=== PATIENT | female | born 1985 | race American Indian/Alaskan Native ===

== ENCOUNTER 2018-06-05 08:56 | Day surgery (SDC) | payer MEDICAID ==
[2018-06-05] MEDS ORDERED: Midazolam 2 MG/2 ML VIAL ONE (10:08)
[2018-06-05] MEDS ORDERED: Propofol 10 mg/ml Inj (20 ML) ONE (10:09)
[2018-06-05] MEDS ORDERED: Doxycycline 100 mg Inj ONE (10:20)
[2018-06-05] MEDS ORDERED: ceFAZolin 1 gm in NS 1 GM/100 ML BAG IVPB ONE (10:44)
[2018-06-05] MEDS ORDERED: HYDROmorphone 0.5 mg/0.5 ml ISec IVP PRN (11:02)
--- NOTE | 2018-06-05 11:14 | CP.PCM.PN ---
Subjective - Date & Time of Evaluation Date of Evaluation: 06/05/18 Time of Evaluation: 11:05 - Subjective Subjective: Called by Nurse in PACU pt with vaginal bleeding with 1 large blood clot pt reprot crmaping pain, denies any dizzyness, cp, sob, Objective - Vital Signs/Intake and Output Vital Signs (last 24 hours): Temp Pulse Resp BP Pulse Ox 98 F 65 18 146/95 H 99 06/05/18 09:08 06/05/18 09:08 06/05/18 09:08 06/05/18 09:08 06/05/18 09:08 Intake and Output: 06/05/18 06/05/18 06:59 18:59 Intake Total 0 Balance 0 - Medications Medications: Current Medications Hydromorphone HCl (Dilaudid) 0.5 mg IVP Q5M PRN PRN Reason: Pain, severe (8-10) Stop: 06/05/18 13:02 - Constitutional Appears: Well, Non-toxic - Head Exam Head Exam: ATRAUMATIC - Neck Exam Neck Exam: Normal Inspection - Cardiovascular Exam Cardiovascular Exam: REGULAR RHYTHM, +S1, +S2 - GI/Abdominal Exam GI & Abdominal Exam: Soft, Tenderness, Normal Bowel Sounds Additional comments: appropiraltye ttp over uterus, non guarding, no reboudn tendner, no rigidty 300cc blood clots evacuted bimanual masages good hemostias - Exam Additional comments: bimaunal as above Assessment and Plan - Assessment and Plan (Free Text) Assessment: s/p suction dxc with bleeding, currently stable Plan: 1. pitocin iv 2. methergin IM x 1 3. cyototec per recutm 4. CBC 5. ivh 6. VS pre procotoc 7. pain managmnet
[2018-06-05] MEDS ORDERED: Oxytocin 10 Units/ml Inj ONE (11:16)
[2018-06-05 12:42] LABS: BASO % 0.4 % (0.0-2.0); EOS # 0.1 K/uL (0.0-0.7); EOS % 1.5 % (0.0-4.0); HEMOGLOBIN 11.4 g/dL (11.0-16.0); LYMPH # 0.5 K/uL (1.0-4.3); LYMPH % 9.1 % (20.0-40.0); MEAN CORPUSCULAR HEMOGLOBIN 31.7 pg (27.0-31.0); MEAN CORPUSCULAR HGB CONC 33.5 g/dL (33.0-37.0); MEAN PLATELET VOLUME 8.6 fL (7.2-11.7); MONO # 0.5 K/uL (0.0-0.8); MONO % 8.7 % (0.0-10.0); NEUT # 4.6 K/uL (1.8-7.0); NEUT % 80.3 % (50.0-75.0); PLATELET COUNT 185 K/uL (130-400); RBC 3.59 Mil/uL (3.80-5.20); RED CELL DISTRIBUTION WIDTH 12.9 % (11.5-14.5)
[2018-06-05 12:45] LABS: MEAN CELL VOLUME 94.6 fL (81.0-99.0); WHITE BLOOD COUNT 5.7 K/uL (4.8-10.8)
[2018-06-05] MEDS ORDERED: Lactated Ringer's 1,000 ML IV ONE (13:20)
[2018-06-05] MEDS ORDERED: Lactated Ringer's 1,000 ML IV SCH (13:30)
[2018-06-05 14:14] LABS: EOSINOPHIL 1 % (0-4); LYMPHOCYTE 6 % (20-40); MONOCYTE 4 % (0-10); NEUTROPHIL 89 % (50-75); PLATELET ESTIMATE NORMAL (NORMAL); TOTAL CELLS COUNTED 100
--- NOTE | 2018-06-05 14:20 | OP ---
PROCEDURE DATE: 06/05/2018 PREOPERATIVE DIAGNOSIS: Missed 9 weeks. POSTOPERATIVE DIAGNOSIS: Missed 9 weeks. PROCEDURE: Suction, dilation and curettage. SURGEON: Kristel Piedra MD. STITCH CLEANER: None. TYPE OF ANESTHESIA: General LMA. OPERATIVE FINDINGS: Anteverted, 8 to 10-week size uterus, moderate products of conception, 8 mm curved suction curette used, good hemostasis, and no complications. ESTIMATED BLOOD LOSS: 10 mL. BLOOD PRODUCTS: None. COMPLICATIONS: None. SPECIMEN: Products of conception. DESCRIPTION OF PROCEDURE: The patient was taken to the operating room where she was given general anesthesia. Once it was found to be adequate, she was placed on the operating table in the dorsal supine position. The patient was prepped and draped in the usual sterile fashion. The patient was given preoperative prophylactic antibiotics with doxycycline. Following this, the [place] retractor was placed in the anterior and posterior fornix of the vagina. The cervix was adequately visualized. A single-tooth tenaculum was placed in the anterior lip of the cervix. The cervix was sequentially dilated to allow for the introduction of the 8-mm curved suction curette, which was advanced through the fundus. Suction was then activated, rotated at 360 degrees 3 times until majority of the products had been removed. Following this, the suction curette was then removed. Gentle curettage was then done 360 degrees until all remaining products had been removed. Suction curette was then advanced for the final time, rotated at 360 degrees. All products had been removed and was completed when there was only air bubbles noted within the suction curette. All instruments were removed. There was good hemostasis noted at the tenaculum puncture site. There was good hemostasis noted at . At the end of the procedure, all needle, sponge, and instrument counts were noted to be correct x2. The patient tolerated the procedure well and was transferred to the recovery room in stable condition. Kristel Piedra MD
[2018-06-05 15:33] VITALS: PULSE 76; RESP 14; TEMP 98.9; O2SAT 98
[2018-06-05 16:22] VITALS: BP 129/67
[2018-06-05 16:48] VITALS: BMI 25.0
== END 2018-06-05 16:23 | disposition home or self-care (01) ==
LOC: C.SDS 08:56
PROVIDERS: ATTEND Obstetrics & Gynecology
DX: O02.1 Missed abortion (principal)
CPT/HCPCS: 36415; 59820; 85025; 86850; 86900; 88305; J0690; J1170; J1885; J2210; J2250; J2405; J2704; J2765; J3010; J7120